=== PATIENT | female | born 1965 | race Asian ===

== ENCOUNTER 2019-07-22 13:26 | Emergency (ER) | payer OTHER ==
[~2019-07-22] VITALS: Ht 172.7 cm; Wt 79.4 kg
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
--- NOTE | 2019-07-22 13:49 | NUR ---
WHEELED OUT VIA GALE FOR XRAY
[2019-07-22] MEDS ORDERED: MORPHINE SULFATE INJ 2 MG/ML DISP.SYRIN IV ONE ×2 (14:00→15:00)
[2019-07-22] MEDS ORDERED: ONDANSETRON HCL/PF - ER 4 MG/2 ML VIAL IV ONE (14:00)
[2019-07-22] MEDS ORDERED: ONDANSETRON HCL/PF 4 MG/2 ML VIAL ONE (14:30)
[2019-07-22] MEDS ORDERED: MORPHINE SULFATE INJ 4 MG/ML DISP.SYRIN ONE ×2 (14:30→15:12)
--- NOTE | 2019-07-22 15:49 | NUR ---
TECH AT BEDSIDE FOR SPLINT
--- NOTE | 2019-07-22 16:04 | NUR ---
IV removed. Catheter intact and site benign. Pressure and 4x4 applied to site. No bleeding noted.Patient discharged to home in stable condition. Written and verbal after care instructions given. Patient verbalizes understanding of instruction.
[2019-07-22 16:11] VITALS: BP 134/87
== END 2019-07-22 16:08 | disposition home or self-care (01) ==
LOC: ER 13:30
DX: S82.832A Other fracture of upper and lower end of left fibula, initial encounter for closed fracture (principal); S20.212A Contusion of left front wall of thorax, initial encounter; S50.312A Abrasion of left elbow, initial encounter; S50.311A Abrasion of right elbow, initial encounter; J98.19 Other pulmonary collapse; Z98.890 Other specified postprocedural states; Z85.72 Personal history of non-Hodgkin lymphomas; V09.9XXA Pedestrian injured in unspecified transport accident, initial encounter; Y93.89 Activity, other specified; Y92.488 Other paved roadways as the place of occurrence of the external cause; Y99.8 Other external cause status
CPT/HCPCS: 29515; 71100; 73610; 73630; 96374; 96375; 96376; 99284; J2270 ×2; J2405 ×2